=== PATIENT | female | born 1975 | race Two or more races ===

== ENCOUNTER → 2017-06-26 | Emergency (ER) | payer OTHER ==
[~2017-06-26] VITALS: Ht 154.9 cm; Wt 63.5 kg
[~2017-06-26] MED LIST: ADVAIR 2501 DISK W/1; ANTIVERT25 M1 PO; ASMANEX0.24 G1
== END | disposition home or self-care (01) ==
LOC: ER 12:11
DX: S61.022A Laceration with foreign body of left thumb without damage to nail, initial encounter (principal); W45.8XXA Other foreign body or object entering through skin, initial encounter; Y93.89 Activity, other specified; Y92.098 Other place in other non-institutional residence as the place of occurrence of the external cause; Y99.8 Other external cause status